=== PATIENT | female | born 1965 | race Caucasian/White ===

== ENCOUNTER 2023-12-30 11:04 | Emergency (ER) | payer BC, SELFPAY ==
[2023-12-30 11:07] VITALS: BP 147/83
--- NOTE | 2023-12-30 12:23 | ED.GENMED ---
History of Present Illness
General
Chief Complaint: Musculo-Skeletal Complaint
Source: patient
Exam Limitations: none
Time Seen by Provider: 12/30/23 11:17
Nursing documentation reviewed up to this point in time: agreed with
Travel History
Have you had any contact with someone who has COVID-19?: No
Do you have any symptoms of coronavirus? Fever > 100 degrees, chills, cough, shortness of breath, sore throat, loss of taste or smell, muscle aches, or headache?: No
History of Present Illness
History of Present Illness:
58-year-old female with Lalita history of hypertension hyperlipidemia, GERD presenting to the emergency department today with concerns of left-sided ankle discomfort and great toe discomfort after slipping on a step and injuring her ankle.
Difficulty walking on the ankle at this point. No specific numbness or weakness. Denies additional injuries head trauma neck pain.
Past History
Past History
ED Past Medical History: Cancer (breast, takes Tamoxofen), GERD (on Omeprazole prn), HTN (takes Lisinopril), Hypercholesterolemia (takes Fenfibronate) and Other (hiatal hernia)
ED Past Surgical History: and Other (lumpectomy)
Social History
Tobacco: Non-smoker
Personal:
Living: with family
Employment: Employed
Review of Systems
Review of Systems
Allergies reviewed?: Yes
All Other Systems: ROS reviewed and negative except as documented in HPI and ROS
Phy Exam
Physical Exam
Physical Exam:
GENERAL: Alert , in no apparent distress
EYE: pupils equal and reactive
NECK: Supple, no significant adenopathy.
ENT: o/p clr, mmm.
CARDIAC: Regular rate and rhythm .
LUNGS: Clear breath sounds bilaterally, no acute respiratory distress, no wheezes/rales/rhonchi
ABDOMEN: Soft, without focal tenderness, no r/g, no cvat
NEUROLOGICAL: Alert and oriented, no focal neuro deficits
SKIN: Warm and dry, skin intact.
MUSCULOSKELETAL: Swelling discomfort to the lateral malleolus of the left ankle additional tenderness to the base of the great toe no tenderness at the forefoot or midfoot no tenderness throughout the remainder of the tib-fib or knee.
PSYCH: Normal and appropriate interaction.
Course
Orders/Labs/Results
Orders:
Orders
12/30/23 11:10
CR Ankle - Left Min 3 Views Urgent
Comment:
Reason For Exam: fall
CR Toe(s) Min 2 Vw Left Urgent
Comment:
Reason For Exam: fall
12/30/23 12:02
Crutches-Treatment ONCE
boot [Ortho Boot Left- Treatment] ONCE
Short or tall?: Tall
Vital Signs
Initial and Last Documented VS:
Initial Vital Signs
Temp Pulse Resp BP
98.1 F 83 16 147/83
12/30/23 11:07 12/30/23 11:07 12/30/23 11:07 12/30/23 11:07
Last Documented Vital Signs
Temp Pulse Resp BP
98.1 F 83 16 147/83
12/30/23 11:07 12/30/23 11:07 12/30/23 11:07 12/30/23 11:07
MDM/Problems Addressed
MDM/Problems Addressed:
58-year-old female presenting to the emergency department today after slipping on a step in her left ankle and toe. Here she does have tenderness to the lateral malleolus and the great toe otherwise no tenderness throughout the ankle foot or stern.
No tenderness to the knee. X-ray showing a distal fibular fracture. No fracture to the great toe. Mortise intact. Patient was given a cam boot and will be nonweightbearing until orthopedic follow-up for further recommendation. Otherwise stable
for discharge. Return precautions given.
*Critical Care Note
Total Time (30-74mins, 75-104mins- exclusive of procedures): Not Applicable
ED Attending Note
-
Portions of this chart may have been created with voice recognition software.� Occasional wrong word or��sound alike� substitutions may have occurred due to the inherent limitations of voice recognition software.
Discharge Plan
Departure
Patient Disposition: Home (Routine Discharge)
Date of Disposition: 12/30/23
Time of Disposition: 12:26
Patient with high blood pressure during this ER visit?: No
Condition: Good
Covid-19: Not Applicable
Discharge Problem:
Fracture of distal end of fibula
Instructions: Ankle Fracture (DC)
Prescriptions:
New
oxycodone-acetaminophen [Percocet] 5-325 mg tablet
1 tab PO Q6H PRN (Reason: Pain) Qty: 7 0RF
Referrals:
Jay Hernandez PA-C [Family Provider] -
Rusty Stack DPM [Active] - Follow up in 1 week
Activity Restrictions/Additional Instructions:
You came to the emergency department today with concerns of ankle discomfort. You were found to have a distal fibula fracture please rest ice compress and over the next few days and follow-up closely with podiatry for further recommendation and
management. Return to the emergency department for any worsening, new or concerning symptoms.
Interventions
Interventions:
*General Assessment Last Done: 12/30/23 11:07
*ED COVID-19 Vaccine History Last Done: 12/30/23 11:07
== END 2023-12-30 13:12 | disposition home or self-care (01) ==
LOC: EMR 11:04
PROVIDERS: EMERGENCY PHYSICIAN Emergency Medicine; FAMILY PHYSICIAN Physician Assistant Medical
DX: S82.832A Other fracture of upper and lower end of left fibula, initial encounter for closed fracture (principal); X58.XXXA Exposure to other specified factors, initial encounter; I10 Essential (primary) hypertension; E78.00 Pure hypercholesterolemia, unspecified; K21.9 Gastro-esophageal reflux disease without esophagitis
CPT/HCPCS: 99283; 73610; 73660

== ENCOUNTER → 2024-01-29 11:00 | Outpatient (REF) | payer BC, SELFPAY | LOC: WDC 11:00 | PROVIDERS: ATTENDING PHYSICIAN Physician Assistant Medical | DX: Z12.31 Encounter for screening mammogram for malignant neoplasm of breast (principal) | CPT/HCPCS: 77063; 77067 ==

== ENCOUNTER → 2024-02-20 10:21 | Outpatient (REF) | payer BC, SELFPAY ==
[2024-02-20 11:54] LABS: ALT (SGPT) 36 U/L (0-35); AST (SGOT) 32 U/L (14-36); Alkaline Phosphatase 76 U/L (38-126); Blood Urea Nitrogen 15 mg/dl (7-17); Calcium 10.1 mg/dl (8.4-10.2); Carbon Dioxide 25 mmol/L (22-30); Chloride 105 mmol/L (98-107); Glucose 104 mg/dl (70-99); Potassium 4.1 mmol/L (3.5-5.1); Sodium 138 mmol/L (135-145); Total Bilirubin 1.2 mg/dl (0.2-1.3); Total Protein 7.8 g/dl (6.3-8.2); eGFR > 60.00
== END ==
LOC: REG 10:21
PROVIDERS: ATTENDING PHYSICIAN Physician Assistant Medical
DX: E83.52 Hypercalcemia (principal); Z85.3 Personal history of malignant neoplasm of breast
CPT/HCPCS: 36415; 80053

== ENCOUNTER 2024-03-25 16:20 | Outpatient (RCR) | payer BC, SELFPAY | END 2024-03-25 23:59 | disposition home or self-care (01) | LOC: RPT 16:20 | PROVIDERS: ATTENDING PHYSICIAN Physician Assistant Medical | DX: S82.822D Torus fracture of lower end of left fibula, subsequent encounter for fracture with routine healing (principal); R26.9 Unspecified abnormalities of gait and mobility; Z73.6 Limitation of activities due to disability | CPT/HCPCS: 97010; 97110; 97112; 97140; 97161 ==

== ENCOUNTER → 2024-03-27 08:42 | Outpatient (REF) | payer BC, SELFPAY ==
[2024-04-03 08:23] LABS: HPV, High Risk Not Detected; HPV, High Risk Source Cervical
== END ==
LOC: CPAP 08:42
PROVIDERS: ATTENDING PHYSICIAN Obstetrics & Gynecology
DX: Z01.419 Encounter for gynecological examination (general) (routine) without abnormal findings (principal); Z11.51 Encounter for screening for human papillomavirus (HPV)
CPT/HCPCS: 87624

== ENCOUNTER 2024-04-22 16:28 | Outpatient (RCR) | payer BC, SELFPAY | END 2024-04-22 23:59 | disposition home or self-care (01) | LOC: RPT 16:28 | PROVIDERS: ATTENDING PHYSICIAN Physician Assistant Medical | DX: S82.822D Torus fracture of lower end of left fibula, subsequent encounter for fracture with routine healing (principal); R26.2 Difficulty in walking, not elsewhere classified; Z73.6 Limitation of activities due to disability | CPT/HCPCS: 97110; 97112 ==

== ENCOUNTER 2024-05-06 16:13 | Outpatient (RCR) | payer BC, SELFPAY | END 2024-05-08 13:30 | disposition home or self-care (01) | LOC: RPT 16:13 | PROVIDERS: ATTENDING PHYSICIAN Physician Assistant Medical | DX: S82.822D Torus fracture of lower end of left fibula, subsequent encounter for fracture with routine healing (principal); Z73.6 Limitation of activities due to disability; R26.2 Difficulty in walking, not elsewhere classified; M62.81 Muscle weakness (generalized) | CPT/HCPCS: 97110; 97112 ==

== ENCOUNTER → 2024-06-20 17:46 | Outpatient (REF) | payer BC, SELFPAY | LOC: MRI 3T 17:46 | PROVIDERS: ATTENDING PHYSICIAN Orthopaedic Surgery; FAMILY PHYSICIAN Physician Assistant Medical | DX: S83.232A Complex tear of medial meniscus, current injury, left knee, initial encounter (principal) | CPT/HCPCS: 73721 ==

== ENCOUNTER → 2024-07-07 07:57 | Outpatient (REF) | payer BC, SELFPAY ==
--- NOTE | 2024-07-07 15:42 | OID.BR.INTR ---
[facility] Breast Navigator - Initial
- -
Date of Contact: 07/07/24
Met with patient. Patient given written information on navigator services available at [facility]. Will follow up as needed per protocol.
== END ==
LOC: WDC 07:57
PROVIDERS: ATTENDING PHYSICIAN Obstetrics & Gynecology; FAMILY PHYSICIAN Physician Assistant Medical
DX: R92.2 Inconclusive mammogram (principal); Z85.3 Personal history of malignant neoplasm of breast; N63.11 Unspecified lump in the right breast, upper outer quadrant
CPT/HCPCS: 88305; 19083; 76641; 77065; 88341; 88360; A4648

== ENCOUNTER → 2024-07-14 09:57 | Outpatient (REF) | payer BC, SELFPAY ==
[2024-07-14 10:39] LABS: % Basophils 1.5 % (0-2); % Eosinophils 0.8 % (0-6); % Immature Granulocytes 0.1 % (0-0.5); % Lymphocytes 36.4 % (20.5-51.1); % Monocytes 5.5 % (1.7-9.3); % Neutrophils 55.7 % (42.2-75.2); Absolute Basophils 0.1 10^3/uL (0-0.2); Absolute Eosinophils 0.1 10^3/uL (0-0.7); Absolute Lymphocytes 2.7 10^3/uL (1.2-3.4); Absolute Monocytes 0.4 10^3/uL (0.1-0.6); Absolute Neutrophils 4.2 10^3/uL (1.4-6.5); Hematocrit 41.4 % (37.0-47.0); Hemoglobin 14.6 g/dL (12.0-16.0); Mean Corp Hgb Conc. 35.3 g/dL (33.0-37.0); Mean Corpuscular Hgb 30.7 pg (27.0-31.0); Mean Corpuscular Volume 87.2 fL (81.0-99.0); Nucleated Red Blood Cells % 0 %; Platelet Count 341 10^3/uL (130-400); Red Blood Cell Count 4.75 10^6/uL (4.20-5.40); Red Cell Dist. Width 12.2 % (11.5-14.5); White Blood Cell Count 7.5 10^3/uL (4.8-10.8)
[2024-07-14 11:25] LABS: ALT (SGPT) 34 U/L (0-35); AST (SGOT) 30 U/L (14-36); Alkaline Phosphatase 65 U/L (38-126); Blood Urea Nitrogen 19 mg/dl (7-17); Calcium 10.4 mg/dl (8.4-10.2); Carbon Dioxide 24 mmol/L (22-30); Chloride 104 mmol/L (98-107); Glucose 110 mg/dl (70-99); HDL Cholesterol 58 mg/dl; LDL Cholesterol, Calculated 99 mg/dl; Potassium 4.8 mmol/L (3.5-5.1); Sodium 139 mmol/L (135-145); Total Bilirubin 1.4 mg/dl (0.2-1.3); Total Cholesterol 177 mg/dl (50-199); Triglyceride 100 mg/dl (10-149); Very Low Density Lipoprotein 20 mg/dl (0-30); eGFR > 60.00
[2024-07-14 11:39] LABS: TSH 0.59 uIU/ml (0.47-4.68)
[2024-07-14 11:45] LABS: Albumin 5.1 g/dl (3.5-5.0); Total Protein 7.7 g/dl (6.3-8.2)
[2024-07-14 16:06] LABS: Glycohemoglobin (HgbA1c) 5.7 % (4.0-5.6)
== END ==
LOC: REG 09:57
PROVIDERS: ATTENDING PHYSICIAN Physician Assistant Medical
DX: E78.2 Mixed hyperlipidemia (principal); Z85.3 Personal history of malignant neoplasm of breast; K21.9 Gastro-esophageal reflux disease without esophagitis; R79.89 Other specified abnormal findings of blood chemistry; E11.69 Type 2 diabetes mellitus with other specified complication; E83.52 Hypercalcemia
CPT/HCPCS: 36415; 80053; 80061; 83036; 84443; 85025

== ENCOUNTER → 2024-08-07 12:20 | Outpatient (REF) | payer BC, SELFPAY | LOC: RAD 12:20 | PROVIDERS: ATTENDING PHYSICIAN Surgery Plastic and Reconstructive Surgery; FAMILY PHYSICIAN Physician Assistant Medical; REFERRING PHYSICIAN Surgery | DX: C50.411 Malignant neoplasm of upper-outer quadrant of right female breast (principal) | CPT/HCPCS: 74174; Q9967 ==

== ENCOUNTER 2024-08-27 06:01 | Inpatient (IN) | payer BC, SELFPAY ==
[2024-08-05 10:38] VITALS: BMI 30.5
[2024-08-05 10:38] LABS: % Basophils 1.7 % (0-2); % Eosinophils 2.2 % (0-6); % Immature Granulocytes 0.2 % (0-0.5); % Lymphocytes 37.3 % (20.5-51.1); % Neutrophils 53.6 % (42.2-75.2); Absolute Basophils 0.1 10^3/uL (0-0.2); Absolute Eosinophils 0.1 10^3/uL (0-0.7); Absolute Lymphocytes 2.4 10^3/uL (1.2-3.4); Absolute Monocytes 0.3 10^3/uL (0.1-0.6); Absolute Neutrophils 3.5 10^3/uL (1.4-6.5); Hematocrit 42.4 % (37.0-47.0); Hemoglobin 14.6 g/dL (12.0-16.0); Mean Corp Hgb Conc. 34.4 g/dL (33.0-37.0); Mean Corpuscular Hgb 30.4 pg (27.0-31.0); Mean Corpuscular Volume 88.1 fL (81.0-99.0); Mean Platelet Volume 10.2 fL (7.4-10.4); Nucleated Red Blood Cells % 0 %; Platelet Count 324 10^3/uL (130-400); Red Blood Cell Count 4.81 10^6/uL (4.20-5.40); Red Cell Dist. Width 12.4 % (11.5-14.5); White Blood Cell Count 6.5 10^3/uL (4.8-10.8)
[2024-08-05 10:47] LABS: ALT (SGPT) 37 U/L (0-35); AST (SGOT) 31 U/L (14-36); Alkaline Phosphatase 74 U/L (38-126); Blood Urea Nitrogen 20 mg/dl (7-17); Calcium 10.1 mg/dl (8.4-10.2); Carbon Dioxide 25 mmol/L (22-30); Chloride 103 mmol/L (98-107); Estimated Creatinine Clearance 100 ml/min; Glucose 120 mg/dl (70-99); Potassium 4.6 mmol/L (3.5-5.1); Sodium 144 mmol/L (135-145); Total Bilirubin 1.2 mg/dl (0.2-1.3); Total Protein 7.6 g/dl (6.3-8.2); eGFR > 60.00
[2024-08-27] VITALS (27 sets, daily range): BP systolic 101–137; BP diastolic 61–84; BMI 30.5
[2024-08-27] MEDS: TYLENOL 1000 MG PO ×2 (06:46→19:26)
[2024-08-27] MEDS: LOVENOX 40 MG SC (06:46)
[2024-08-27] MEDS: NORMOSOL-R/PLASMALYTE-A 1000 IV (06:47)
[2024-08-27] MEDS: EMEND 40 MG PO (07:10)
--- NOTE | 2024-08-27 07:49 | W.SUR.PREOP ---
Pre-Operative Surgical Note
-
I have examined this patient prior to the performance of the scheduled procedure.
The patient's condition is unchanged from the time of the current History and
Physical and the patient is able to undergo the scheduled procedure.
--- NOTE | 2024-08-27 16:59 | OR.RPT ---
Operative Report
Operative Report
Surgeon: Blair Brown MD
Building Maintenance Custodian: Mustapha Michael MD
Second Parts Counter Salesperson: Chapis Salazar MD
Pre-op diagnosis:
1.� Personal history of recurrent right breast cancer
2.� Prior right breast radiation
3. Breast asymmetry
Postop diagnosis: Same
Procedure:
1.� Bilateral breast reconstruction with MEME flaps
2.� Bilateral internal mammary lymph node biopsy
3. Local tissue rearrangement of the left breast for adjustment of skin envelope 45 cm2
Anesthesia: General
EBL: 150 cc
Specimens:
1.� Right internal mammary lymph node
2.� Left mastectomy skin and soft tissue
3.� Left internal mammary lymph node
Drains: 4 - 15 [place] Artur drains
Complications: none
Indications:
59-year-old female with a past medical history significant for right breast cancer with prior radiation.� She unfortunately was diagnosed with recurrent right breast cancer. She was interested in moving forward with autologous reconstruction due to
the prior history of radiation. Given the anticipated bilateral MEME flap breast reconstruction, I was asked to be involved in her care given the complexity of the case and the need for a second surgeon to do this as safely and efficiently as
possible.
Regarding bilateral free flap breast reconstruction,� she understood the nature of the surgery and all of the risk benefits alternatives were discussed at length.� Specific risks included flap failure or thrombosis, hematoma, seroma, poor wound
healing and compromise to the abdominal wall.� All questions were answered and consents were signed.
Operative findings:
The patient was identified in the preoperative area and consents were confirmed. The bilateral breasts were marked out as was the elliptical infraumbilical donor site. All questions were answered. She was brought to the operating room and placed
supine on the operative table.� General anesthesia was induced with an endotracheal tube. The arms were out bilaterally and a Sullivan catheter was placed.� Preoperative Lovenox and antibiotics were administered, and SCDs were placed.� The patient's
bilateral breasts and abdomen were prepped and draped in normal standard fashion using chlorhexidine prep.� A timeout for patient safety was performed.
As the breast surgeon, Dr. Salazar, was performing the mastectomies, Dr. Michael and I were in the abdomen dissecting the abdominal flaps. I dissected the right abdominal flap for left breast reconstruction and Dr. Michael worked on the left abdomen
for right breast reconstruction. Dr. Michael assisted me with my portions of the case, and I assisted him with his portions of the case. Please see Dr. Salazar and Dr. Michael's separately dictated operative notes.
In the abdomen, bilateral MEME flaps were dissected out. This began with incising the proposed markings superiorly and dissection with a slight bevel upwards to the level of the fascia. Undermining of the supraumbilical flap continue in the midline
above the umbilicus. Laterally, this extend near but not all the way to the costal margin. The patient was then flexed at the waist and the lower incision was confirmed to be tenable without undue tension. The patient was returned supine and the
lower marking was incised with a 10 blade. The flaps were then raised laterally to medially be sure to maintain the perforating vessels above the level of the fascia.� On the right side a 4 prototype fabricator MEME flap was dissected out.� Similarly on the
left side a 3 prototype fabricator MEME flap had been dissected out.�This involved a tedious intramuscular dissection to minimize the amount of muscle harvested with the flap. The pedicles were dissected down to level of the iliac vessels.
When Dr. Salazar was done with the mastectomies, I moved up to the left chest for the mammary dissection. The muscle was split over the third intercostal rib and the cartilaginous portion of the rib was excised.� The underlying internal mammary
vessels were then meticulously and carefully dissected.�An internal mammary lymph node was encountered and this was excised and sent off for pathologic evaluation. Once the vessels were fully dissected circumferentially these were allowed to dilate
up while attention was turned to the contralateral breast.� A pectoralis block was then performed with marcaine and a 15 [place] Artur drain was placed through a stab incision the lateral IMF.� This was secured using a 2-0 Prolene suture.
The identical procedure was then performed on the patient's right side.� Again this involved rib resection, and internal mammary vessel dissection.� These vessels were similarly prepared and allowed to dilate up with papaverine soaked neuro
patties.�The vessels were radiated on this side and required a more careful dissection. A pectoralis block was similarly performed on this side and a 15 [place] Artur drain was also placed through a stab incision in the lateral IMF on the side. An
internal mammary lymph node was also noted on the right side. This was dissected out and sent off for pathologic evaluation.
The left hemiabdominal flap was then transferred up to the right chest first due to the history of radiation.� The microvascular anastomosis was then performed.� This was done using a 3.5mm locker room manager for the venous anastomosis.� The arterial
anastomosis was performed with a handsewn technique using 8-0 nylon suture.� Upon removal of the microvascular clamps there was excellent perfusion of the flap.� The flap was then temporarily inset with melba and attention was turned to the
contralateral side.
The right hemiabdominal flap was then transferred up to the left chest.� The microvascular anastomosis was similarly performed.� On this side a 3.0mm locker room manager was again utilized for the venous anastomosis.� The arterial anastomosis was performed in
the same fashion as the contralateral side.� Again there was excellent perfusion noted upon removal of the vascular clamps.
While one surgeon was performing the microvascular anastomosis the other surgeon was performing the abdominal wall reconstruction.� This involved reapproximation of the muscles that was divided.� A small piece of Phasix mesh was inset as a underlay
with primary fascial closure.� The fascia was closed with a PDS stratafix sutures.�A midline abdominal plication was also peformed due to the patient's rectus diastasis.
A TAP block was performed bilaterally for postoperative analgesia.� Two 15 [place] Artur drains were placed in the abdomen.� These were similarly secured using 2-0 Prolene sutures.� The abdominal wall was then closed in a layered fashion.� 2-0 Vicryl
suture was utilized in the Jeramie's fascia.� The Insorb dermal stapler was then utilized for reapproximation of the deep dermis.� The superficial skin was then closed using 4-0 Monocryl suture.� The umbilicus was transposed.� This was inset using a
combination of 3-0 Monocryl in the deep dermis and 5-0 prolene suture superficially.
The MEME flaps were then inset. The breast skin was then revised with a local tissue rearrangement on the left.�A 9 x 5 cm local tissue rearrangement was performed on the left to revise the left breast skin and tighten the skin envelope for a total
of 45 cm2. The breast skin was then excised and sent off for pathologic evaluation.� The skin was then closed in a layered fashion using 3-0 and 4-0 Monocryl suture.� The MEME flaps were de-epithelialized in all areas that would not be exposed
prior to closure.
Doppler signals were identified on both skin islands and there was good punctate bleeding at time of deepithelialization. Signals were marked with 5-0 prolenes.
The wounds were then all dressed and the patient was extubated uneventfully.� All counts were correct at the the completion of the case.� The patient tolerated the procedure very well.� She had an excellent cosmetic outcome.� The patient was then
transferred to the ICU for postoperative� monitoring.
I was the primary surgeon for the left MEME flap breast reconstruction and Dr. Genna Michael was the primary surgeon for the right side. I assisted him in all aspects of his surgery and he assisted me throughout my procedure.
Dr. Chapis Salazar was our second programs assistant for this case.� Her assistance was critical and medically necessary to allow us to perform this in a safe and timely manner for this patient.� She assisted with retraction, execution, and closure of this
case.
--- NOTE | 2024-08-27 17:15 | W.IMMPOSTOP ---
Surgical Immed Post Op Note
-
Primary Surgeon: DENISE Michael MD
Assisting Surgeon: Blair Brown MD
Pre-op Diagnosis: right breast cancer
Post-op Diagnosis: same
Procedure Performed: bilateral immediate D IEP flap breast reconstruction
Anesthesia Type: General
Specimen / Cultures: Per Dr. Salazar
Estimated Blood Loss: 150 cc
Complications: none
Operative Findings: as expected, no issues with micro
--- NOTE | 2024-08-27 17:16 | OR.RPT ---
Operative Report
Operative Report
Date of surgery: 08/27/2024
Surgeon: Mustapha Michael MD
Brick Pointer: Blair Brown MD
Second Contract Post Office Clerk: Chapis Salazar MD
Pre-op diagnosis:
1.� Personal history of recurrent right breast cancer
2.� Prior right breast radiation
3. Breast asymmetry
Postop diagnosis: Same
Procedure:
1.� Bilateral breast reconstruction with MEME flaps
2.� Bilateral internal mammary lymph node biopsy
3. Local tissue rearrangement of the left breast for adjustment of skin envelope 45 cm2
Anesthesia: General
EBL: 150 cc
Specimens:
1.� Right internal mammary lymph node
2.� Left mastectomy skin and soft tissue
3.� Left internal mammary lymph node
Drains: 4 - 15 Swazi Artur drains
Complications: none
Indications:
59-year-old female with a past medical history significant for right breast cancer with prior radiation.� She unfortunately was diagnosed with recurrent right breast cancer. She was referred to me by Dr. Salazar for consideration of breast
reconstruction options. After a conversation about both implant and autologous reconstruction options and the associated risks, she was interested in moving forward with autologous reconstruction. This is medically advisable given the prior history
of radiation. As it is a bilateral procedure with chest and abdomen as distinct operative sites, I asked Dr. Blair Brown to be involved in her care given the complexity of the case and the need for a second surgeon to do this as safely and
efficiently as possible.
Regarding bilateral free flap breast reconstruction,� she understood the nature of the surgery and all of the risk benefits alternatives were discussed at length.� Specific risks included flap failure or thrombosis, hematoma, seroma, poor wound
healing and compromise to the abdominal wall.� All questions were answered and consents were signed.
Operative findings:
The patient was identified in the preoperative area and consents were confirmed. The bilateral breasts were marked out as was the elliptical infraumbilical donor site. All questions were answered. She was brought to the operating room and placed
supine on the operative table.� General anesthesia was induced with an endotracheal tube. The arms were out bilaterally and a Sullivan catheter was placed.� Preoperative Lovenox and antibiotics were administered, and SCDs were placed.� The patient's
bilateral breasts and abdomen were prepped and draped in normal standard fashion using chlorhexidine prep.� A timeout for patient safety was performed.
As the breast surgeon, Dr. Salazar, was performing the mastectomies, Dr. Brown and I were in the abdomen dissecting the abdominal flaps. I dissected the left abdominal flap for riht breast reconstruction and Dr. Brown worked on the right abdomen for
left breast reconstruction. Dr. Brown assisted me with my portions of the case, and I assisted him with his portions of the case. Please see Dr. Salazar and Dr. Brown's separately dictated operative notes.
In the abdomen, bilateral MEME flaps were dissected out. This began with incising the proposed markings superiorly and dissection with a slight bevel upwards to the level of the fascia. Undermining of the supraumbilical flap continue in the midline
above the umbilicus. Laterally, this extend near but not all the way to the costal margin. The patient was then flexed at the waist and the lower incision was confirmed to be tenable without undue tension. The patient was returned supine and the
lower marking was incised with a 10 blade. The flaps were then raised laterally to medially be sure to maintain the perforating vessels above the level of the fascia.� On the right side a 4 director of compliance MEME flap was dissected out.� Similarly on the
left side a 3 director of compliance MEME flap had been dissected out.�This involved a tedious intramuscular dissection to minimize the amount of muscle harvested with the flap. The pedicles were dissected down to level of the iliac vessels.
When Dr. Salazar was done with the mastectomies, Dr. Brown moved up to the left chest for the mammary dissection. The muscle was split over the third intercostal rib and the cartilaginous portion of the rib was excised.� The underlying internal
mammary vessels were then meticulously and carefully dissected.�An internal mammary lymph node was encountered and this was excised and sent off for pathologic evaluation. Once the vessels were fully dissected circumferentially these were allowed to
dilate up while attention was turned to the contralateral breast.� A pectoralis block was then performed with marcaine and a 15 Swazi Artur drain was placed through a stab incision the lateral IMF.� This was secured using a 2-0 Prolene suture.
The identical procedure was then performed on the patient's right side.� Again this involved rib resection, and internal mammary vessel dissection.� These vessels were similarly prepared and allowed to dilate up with papaverine soaked neuro
patties.�The vessels were radiated on this side and required a more careful dissection. A pectoralis block was similarly performed on this side and a 15 Swazi Artur drain was also placed through a stab incision in the lateral IMF on the side. An
internal mammary lymph node was also noted on the right side. This was dissected out and sent off for pathologic evaluation.
The left hemiabdominal flap was then transferred up to the right chest first due to the history of radiation.� The microvascular anastomosis was then performed.� This was done using a 3.5mm sys dir for the venous anastomosis.� The arterial
anastomosis was performed with a handsewn technique using 8-0 nylon suture.� Upon removal of the microvascular clamps there was excellent perfusion of the flap.� The flap was then temporarily inset with melba and attention was turned to the
contralateral side.
The right hemiabdominal flap was then transferred up to the left chest.� The microvascular anastomosis was similarly performed.� On this side a 3.0mm sys dir was again utilized for the venous anastomosis.� The arterial anastomosis was performed in
the same fashion as the contralateral side.� Again there was excellent perfusion noted upon removal of the vascular clamps.
While one surgeon was performing the microvascular anastomosis the other surgeon was performing the abdominal wall reconstruction.� This involved reapproximation of the muscles that was divided.� A small piece of Phasix mesh was inset as a underlay
with primary fascial closure.� The fascia was closed with a PDS stratafix sutures.�A midline abdominal plication was also performed due to the patient's rectus diastasis.
A TAP block was performed bilaterally for postoperative analgesia.� Two 15 Swazi Artur drains were placed in the abdomen.� These were similarly secured using 2-0 Prolene sutures.� The abdominal wall was then closed in a layered fashion.� 2-0 Vicryl
suture was utilized in the Jeramie's fascia.� The Insorb dermal stapler was then utilized for reapproximation of the deep dermis.� The superficial skin was then closed using 4-0 Monocryl suture.� The umbilicus was transposed.� This was inset using a
combination of 3-0 Monocryl in the deep dermis and 5-0 prolene suture superficially.
The MEME flaps were then inset. The breast skin was then revised with a local tissue rearrangement on the left.�A 9 x 5 cm local tissue rearrangement was performed on the left to revise the left breast skin and tighten the skin envelope for a total
of 45 cm2. The breast skin was then excised and sent off for pathologic evaluation.� The skin was then closed in a layered fashion using 3-0 and 4-0 Monocryl suture.� The MEME flaps were de-epithelialized in all areas that would not be exposed
prior to closure.
Doppler signals were identified on both skin islands and there was good punctate bleeding at time of deepithelialization. Signals were marked with 5-0 prolenes.
The wounds were then all dressed and the patient was extubated uneventfully.� All counts were correct at the the completion of the case.� The patient tolerated the procedure very well.� She had an excellent cosmetic outcome.� The patient was then
transferred to the ICU for postoperative� monitoring.
I was the primary surgeon for the right MEME flap breast reconstruction and Dr. Blair Brown was the primary surgeon for the left side. I assisted him in all aspects of his surgery and he assisted me throughout my procedure.
Dr. Chapis Salazar was our second clinical laboratory assistant for this case.� Her assistance was critical and medically necessary to allow us to perform this in a safe and timely manner for this patient.� She assisted with retraction, execution, and closure of this
case.
[2024-08-27] MEDS: ZOFRAN 4 MG IV (17:51)
[2024-08-27] MEDS: LR 1000 IV (17:55)
--- NOTE | 2024-08-27 18:13 | PTCARENOTE ---
Received patient to room 3371. Patient groggy, arousable. AAOx3. on 6L simple mask. 99%. Applied monitor, patient sinus rhythm/sinus tach low 100s. Paddle doppler checks completed at handoff with physician present. will check as ordered.
Patient is nauseous, zofran administered, Is ordered clear liquid diet. temp sensing mckeon in place, audra angeles applied as charted in worklist. Skin to be charted in worklist. LR hung running into 20g in left hand. reviewing orders. SCDs on.
[2024-08-27] MEDS: VALIUM 5 MG PO (19:26)
[2024-08-27] MEDS: ULTRAM 100 MG PO (23:03)
[2024-08-28] VITALS (57 sets, daily range): BP systolic 101–137; BP diastolic 64–85; BMI 31.6
[2024-08-28] MEDS: NEURONTIN 100 MG PO ×3 (01:00→15:58)
[2024-08-28] MEDS: ANCEF 10 IV ×3 (01:15→15:59)
[2024-08-28] MEDS: LR 1000 IV (01:15)
[2024-08-28] MEDS: ZOFRAN 4 MG IV (01:34)
--- NOTE | 2024-08-28 01:49 | PTCARENOTE ---
nikki texted dr briggs, updated him with pictures of the incision sites. mild bruising was noted on both breasts. dr briggs messased back that everything is normal.
[2024-08-28 04:58] LABS: Hematocrit 28.8 % (37.0-47.0); Hemoglobin 10.1 g/dL (12.0-16.0)
[2024-08-28 05:22] LABS: Blood Urea Nitrogen 13 mg/dl (7-17); Calcium 8.4 mg/dl (8.4-10.2); Carbon Dioxide 25 mmol/L (22-30); Chloride 106 mmol/L (98-107); Estimated Creatinine Clearance 100 ml/min; Glucose 155 mg/dl (70-99); Potassium 3.8 mmol/L (3.5-5.1); Sodium 141 mmol/L (135-145); eGFR > 60.00
--- NOTE | 2024-08-28 07:24 | CON.INTV ---
Consultation
Consultation Request
Date/Time Consultation Requested: 08/26/24
Date/Time Consultation Performed: 08/27/24
Performing Provider: Juliana
Reason for Consultation: ICU
Medical History
-
History of Present Illness:
Patient is a 59-year-old female with recurrent right breast mucinous carcinoma who presents for bilateral mastectomies and immediate reconstruction. She has prior history of breast cancer diagnosed in 2016 and underwent lumpectomy, chemotherapy
with radiation. Underwent bilateral mastectomies with MEME FLAP with Drs. Salazar and Alec. Postoperatively transferred to ICU for further management.
.
Past Medical History
Past Medical History: Other (see list below)
Social History
Tobacco: Non-smoker
Alcohol: None
Drug: None
Family History
Family History: Reviewed & Not Pertinent
Allergies / Home Medications
Allergies
Allergy/AdvReac Type Severity Reaction Status Date / Time
codeine Allergy Confusion Verified 08/27/24 06:19
Seasonal Allergy Sneezing, Uncoded 08/27/24 06:19
itchy eye,
ears,
throat
Home Medications
�Medication �Instructions �Recorded �Confirmed �Last Taken �Type
B-complex with vitamin C 1 tab PO DAILY 08/20/24 08/27/24 08/21/24 History
ascorbic acid (vitamin C) 1,000 mg 1,000 PO BID 08/20/24 08/21/24 History
tablet (Vitamin C)
atorvastatin 20 mg tablet 20 mg PO DAILY 08/20/24 08/27/24 08/26/24 08:00 History
cholecalciferol (vitamin D3) 50 50 mcg PO DAILY 08/20/24 08/27/24 08/21/24 History
mcg (2,000 unit) tablet (Vitamin
D3)
fenofibrate 54 mg tablet 145 mg PO DAILY 08/20/24 08/27/24 08/26/24 21:00 History
lisinopril 20 mg tablet 20 mg PO DAILY 09/08/27/24 08/26/24 08:00 History
multivitamin 1 tab PO DAILY 08/20/24 08/27/24 08/21/24 History
omeprazole 20 mg capsule,delayed 20 mg PO DAILY PRN indigestion 08/20/24 08/27/24 08/26/24 12:00 History
release
Review of Systems
-
History Source: Patient
All other systems: Negative unless noted
Vitals / Labs / Diagnostic Testing
Vital Signs
Temp Pulse Resp BP Pulse Ox
98.9 F 96 18 111/71 94
08/28/24 06:00 08/28/24 06:30 08/28/24 06:30 08/28/24 06:30 08/28/24 06:43
Lab Data
08/28/24 04:33
08/28/24 04:33
Diagnostic Testing:
Physical Exam
-
HEENT: Normocephalic, Anicteric and Moist Mucous Membranes
Cardiovascular: S1/S2, Regular Rhythm and Other (incision noted, drains in place)
Respiratory: Clear and Non-Labored Respirations
GI: Soft, Non Distended and Non Tender
Neurology: Awake, Alert, Oriented and No Motor Deficits
Skin: Warm, Dry and Good Color
General: Comfortable, Pain and Other (NAD)
Assessment
-
Patient is a 59-year-old female with recurrent right breast mucinous carcinoma who presents for bilateral mastectomies and immediate reconstruction. She has prior history of breast cancer diagnosed in 2016 and underwent lumpectomy, chemotherapy
with radiation. Underwent bilateral mastectomies with MEME FLAP with Drs. Salazar and Alec. Postoperatively transferred to ICU for further management.
Recurrent right breast cancer status post B/l mastectomies with MEME FLAP 08/26/24
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
Abnormal pap 1993: cervical dysplasia s/p LEEP
HLD
History of R invasive ductal carcinoma breast 2016 s/p lumpectomy/chemo/radiation
Seasonal allergies
Tubal ligation 1998
Cervical spine surgery
D and C 2016
Plan
S/p BL mastectomies (with Dr Salazar) with MEME FLAP by plastic surgery 08/26/24
Observe overnight following procedure
Follow CBC, neurovascular checks
Follow q1 blood flow monitoring to flap
Notify surgical team if compromised
Avoid pressors
Bolus IVFs for hypotension
Pain control via CAUSTIC MIXER
Encouraged patient use prior to movement/PT
No prior h/o lung disease, nonsmoker
CXR without acute findings
Encourage IS, OOB today
Restart diet per protocol/advance as tolerated
GI ppx if indicated/history of GERD
DVT ppx held, SCDs
Creat at baseline, follow UO
No signs/symptoms suspicious for infectious etiology at this time.
Placed on perioperative abx per surgical team
Encourage OOB, early mobility
PT/OT
Incentive spirometer encouraged to prevent postoperative atelectasis
DVT ppx as indicated postop
SCDs
Monitor 48 hours, frequent vascular checks
If doing well, can transfer to floors with approval by primary team.
We will follow
Diagnostic Data
Chest X-Ray: 08/27/24- Low lung volumes. Minor bibasilar opacity likely representing subsegmental atelectasis.
CT Scan:
Echo: 2017- Normal left ventricular size. Normal left ventricular systolic function. Left ventricular ejection fraction is 65-70%. Mild left ventricular hypertrophy with prominent basal septum. Normal regional wall motion. Stage I diastolic
dysfunction suggestive of abnormal relaxation. Normal right ventricular size. Normal right ventricular systolic function. No significant valvular disease. No prior study available for comparison.
PFT's:
Reports and relevant images were personally reviewed.
-----
Critical care time 50 mins -- this includes review of history, physical exam, medications, hemodynamic/ventilator parameters, laboratory data, imaging and discussion with house staff, pharmacy, respiratory therapy, guest service aide, and nursing.
--- NOTE | 2024-08-28 07:44 | PTCARENOTE ---
Received patient from hourly shift. patient is AAOx4. denies any numbness or tingling. she is sinus rhythm on monitor. lungs clear on room air. Patient has no change in neurovascular paddle checks as documented in worklist. Will advance diet to
regular. Patient is due to void, mckeon discontinued at 0600. LR continues to run into left hand INT. Orders reviewed.
[2024-08-28] MEDS: COLACE 100 MG PO ×3 (08:04→21:02)
[2024-08-28] MEDS: LIPITOR 20 MG PO (08:04)
[2024-08-28] MEDS: TYLENOL 1000 MG PO ×4 (08:04→21:02)
[2024-08-28] MEDS: VALIUM 5 MG PO ×3 (08:04→21:02)
[2024-08-28] MEDS: SENOKOT 8.6 MG PO ×2 (08:04→20:19)
--- NOTE | 2024-08-28 09:15 | W.PN.PLAS ---
Today's Communication
-
POD 1 flap protocol
DOing very well
Progress Note
Subjective Data
Doing well
Pain well controlled
Denies SOB
Subjective: Sullivan Removed
Objective Data
Vital Signs
Temp Pulse Resp BP Pulse Ox
99.0 F 97 20 120/72 92
08/28/24 08:13 08/28/24 08:30 08/28/24 08:30 08/28/24 08:30 08/28/24 08:30
Intake and Output
08/27/24 08/28/24 08/29/24
06:59 06:59 06:59
Intake Total 1500 / 1625 250 / 250
Output Total 2380 / 2380 110 / 110
Balance -880 / -755 140 / 140
Intake:
IV fluids (Total) 1500 / 1625 250 / 250
Lr 1,000 ml @ 125 mls/hr IV . 1500 / 1625 250 / 250
Q8H DEEPA Rx#:[id number]
Output:
Drain Output (Total) 30 / 30 110 / 110
A 0 / 0 40 / 40
B 15 / 15 30 / 30
C 5 / 5 0 / 0
D 10 / 10 40 / 40
Urine, Sullivan 2350 / 2350
PEX:
Well perfused breast flaps, doppler signals intact
No e/o venous congestion
Drains serosang with appropriate output
some mastectomy skin ecchymoses as expected
Abd dressings intact
Lab Results
08/28/24 04:33
08/28/24 04:33
Assessment / Plan
POD1 for bilateral mstx and immediate MEME flap recon
Free Flap protocol
q1h flap checks
OOB to chair
Sullivan out
SCDs/Lovenox
PO pain
Reg diet
PT/OT tomorrow
--- NOTE | 2024-08-28 09:44 | W.PN.ANS.POP ---
Anesthesia Post Operative
- Anesthesia Post Op Note
Vital Signs Stable-See Nursing Note: Yes
Airway Patent: Yes
Adequate Pain Control: Yes
Change in Mental Status: No
Current Postoperative Nausea & Vomiting: No
Anesthesia Complications: No
General Anesthetic Recall: No
Unplanned Admission: No
Post Op Hydration Adequate: Yes
- -
patient eating and drinking fluids. Resting comfortably in bed. No complaints or concerns at this time
--- NOTE | 2024-08-28 10:50 | PTCARENOTE ---
Patient OOB to chair, maintained chair position and slight bend in abdomen. Min assist/standby assist. voided in BSC as well.
--- NOTE | 2024-08-28 11:27 | VNURNOTE ---
Home Health Liaison met with patient at bedside to discuss [facility] nurse/therapy, visits, schedule and homebound status. Patient is agreeable and understands that visits at home will be 2-3 x per week to assess surg wounds, drains, and teach medical
management. [facility] brochure provided with contact information. Patient is aware that [facility] will contact them for start of care in 1-2 days after discharge from .
[facility] referral completed in Care Port.
--- NOTE | 2024-08-28 12:17 | CM ---
CM following re: discharge planning.
Reviewed pt's chart, met with pt.
Pt is a 59 year old female, admitted with primary dx of POD1 for bilateral mstx and immediate MEME flap recon.
Pt reports she lives with in a 2SH, 2 steps to enter, has 3 supportive children. 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
CM consulted to arrange VN services with a request for RN visit next day of discharge. CM discussed it with the pt, options provided and pt preferred VN. A referral to [facility] made. Pt stated she is aware she possibly will be discharged as early as
Sunday. Pt stated her with transport home at discharge.
Please fax discharge instructions to [facility] at [phone].
D/C plan: home with [facility] with a requested RN visit next day of discharge.
CM will follow with discharge plan updates as hospitalization progresses
[2024-08-28] MEDS: ULTRAM 100 MG PO ×2 (14:41→20:19)
--- NOTE | 2024-08-28 17:30 | PTCARENOTE ---
Cash texted Dr. Michael as patient's left breast is becoming more ecchymotic. Breast tissue still soft and doppler signal still present. Physician aware, no new orders.
[2024-08-28] MEDS: TYLENOL PO (18:06)
[2024-08-28] MEDS: LOVENOX 40 MG SC (18:38)
[2024-08-29] VITALS (38 sets, daily range): BP systolic 101–133; BP diastolic 64–88; PULSE 102; O2SAT 95; BMI 31.7
--- NOTE | 2024-08-29 | PTCARENOTE ---
Pt received at 19:00, initial assessment as documented. Handoff breast paddle checks completed. Q4 ANDRADE drain output---see flowsheet. Safe environment maintained, call smith within reach, pt remains in beach chair position when in bed or chair.
[2024-08-29] MEDS: NEURONTIN 100 MG PO ×3 (00:03→16:35)
[2024-08-29] MEDS: PROTONIX 40 MG PO (01:11)
[2024-08-29 04:31] LABS: Hematocrit 27.9 % (37.0-47.0); Hemoglobin 9.6 g/dL (12.0-16.0); Mean Corp Hgb Conc. 34.4 g/dL (33.0-37.0); Mean Platelet Volume 9.7 fL (7.4-10.4); Platelet Count 222 10^3/uL (130-400); Red Cell Dist. Width 12.8 % (11.5-14.5)
[2024-08-29 04:51] LABS: Blood Urea Nitrogen 18 mg/dl (7-17); Calcium 8.8 mg/dl (8.4-10.2); Carbon Dioxide 28 mmol/L (22-30); Chloride 106 mmol/L (98-107); Estimated Creatinine Clearance 102 ml/min; Glucose 125 mg/dl (70-99); Potassium 3.9 mmol/L (3.5-5.1); Sodium 141 mmol/L (135-145); eGFR > 60.00
--- NOTE | 2024-08-29 05:29 | PTCARENOTE ---
Paddle checks unchanged. Signal present bilaterally. L breast ecchymotic, unchanged from handoff report. Safe environment maintained, call smith within reach. Discussed ANDRADE drainage and emptying.
--- NOTE | 2024-08-29 07:19 | W.PN.INTV ---
Today's Communication / Plan
Recommendations
Doing well today, stable on RA
Pain control
PT/OT, IS
Further postop care per surgery
Discharge planning per team in AM
Assessment
-
Patient is a 59-year-old female with recurrent right breast mucinous carcinoma who presents for bilateral mastectomies and immediate reconstruction. She has prior history of breast cancer diagnosed in 2015 and underwent lumpectomy, chemotherapy
with radiation. Underwent bilateral mastectomies with MEME FLAP with Drs. Salazar and Alec. Postoperatively transferred to ICU for further management.
Recurrent right breast cancer status post B/l mastectomies with MEME FLAP 08/26/24
Postop atelectasis
Nocturnal O2 use
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
Abnormal pap 1993: cervical dysplasia s/p LEEP
HLD
History of R invasive ductal carcinoma breast 2016 s/p lumpectomy/chemo/radiation
Seasonal allergies
Tubal ligation 1998
Cervical spine surgery
D and C 2016
Plan
S/p BL mastectomies (with Dr Salazar) with MEME FLAP by plastic surgery 08/26/24
Observe overnight following procedure
Follow CBC, neurovascular checks
Follow q1 blood flow monitoring to flap
Notify surgical team if compromised
Avoid pressors
Bolus IVFs for hypotension
Pain control
Encouraged patient use prior to movement/PT
No prior h/o lung disease, nonsmoker
CXR without acute findings
Encourage IS, OOB today
Nocturnal O2 use noted, could be due to postop atel + undiagnosed CARLENE
Can eval as OP if ongoing
Restart diet per protocol/advance as tolerated
GI ppx if indicated/history of GERD
DVT ppx held, SCDs
Creat at baseline, follow UO
No signs/symptoms suspicious for infectious etiology at this time.
Placed on perioperative abx per surgical team
Encourage OOB, early mobility
PT/OT
Incentive spirometer encouraged to prevent postoperative atelectasis
DVT ppx as indicated postop
SCDs
Discharge planning in AM
Diagnostic Data
Chest X-Ray: 08/27/24- Low lung volumes. Minor bibasilar opacity likely representing subsegmental atelectasis.
CT Scan:
Echo: 2017- Normal left ventricular size. Normal left ventricular systolic function. Left ventricular ejection fraction is 65-70%. Mild left ventricular hypertrophy with prominent basal septum. Normal regional wall motion. Stage I diastolic
dysfunction suggestive of abnormal relaxation. Normal right ventricular size. Normal right ventricular systolic function. No significant valvular disease. No prior study available for comparison.
PFT's:
Reports and relevant images were personally reviewed.
-----
Critical care time 31 mins -- this includes review of history, physical exam, medications, hemodynamic/ventilator parameters, laboratory data, imaging and discussion with house staff, pharmacy, respiratory therapy, picking table worker, and nursing.
Subjective Dataa
Subjective Data
Date of Service:
Date of Service: August 29, 2024
Chief Complaint: Practice Consultant Follow Up
Subjective:
Doing well, stable on RA
Pain is well controlled
Sitting in chair
Objective Data
Data Reviewed
Vital Signs / I&O / Oxygen:
Vital Signs
Temp Pulse Resp BP Pulse Ox
98.2 F 91 14 109/73 98
08/28/24 15:14 08/29/24 05:30 08/29/24 05:30 08/29/24 05:30 08/29/24 05:42
Intake and Output
08/28/24 08/29/24 08/30/24
06:59 06:59 06:59
Intake Total 1500 / 1625 2550 / 2550
Output Total 2380 / 2380 1986 / 1986
Balance -880 / -755 563 / 563
SaO2 98
Nasal Cannula flow liters per 3
minute
Physical Exam
General: Comfortable, Pain and Other (NAD)
HEENT: Normocephalic, Anicteric and Moist Mucous Membranes
Cardiovascular: S1-S2 and Regular Rhythm
Respiratory: Clear (decreased at bases) and Non-Labored Respirations
GI: Soft, Non Distended and Tender
Neurology: Awake, Alert, Oriented and No Motor Deficits
Skin: Warm, Dry and Good Color
Labs/Micro/Reports
Lab Data
08/29/24 04:17
08/29/24 04:17
--- NOTE | 2024-08-29 08:59 | W.PN.UPDATE ---
Update Note
Progress Note Update
I saw the pt yesterday POD #1. She was in chair comfortable. Ecchymosis right lateral breast and chest wall, not unexpected. Pt was tolerating
PO intake. Feels 'loupy' from the Valium but understands importance. Final pathology pending. Progressing well, continue MEME flap protocol.
--- NOTE | 2024-08-29 09:00 | PTCARENOTE ---
Rec'd pt at 0700 awake resting in bed. Pulse checks completed with offgoing RN. Overall states she is feeling good- just concerned about what she can do and what to expect. Explanations given. Speech is clear. TAL. Pt instructed to stay a little
hunched over with walking and getting oob and not pushing off with her arms. Skin as noted- Bilateral breast paddles are pink and body temp with good signals. R breast with some purple ecchymosis on surrounding breast tissue. L breast with darker
purple ecchymosis especially on the L lateral and underside aspect of the breast. Also noted to have 2 fluid filled blisters on the L breast tissue. Breasts bilaterally are soft and warm to touch. Dr. Michael in to exam and updated. Pt with lower abd
incision with dressing over that is D+I. ABd binder in place. [address] R and L lat breast and R and L lat abd - all draining serosang drainage. VIOLA drains stripped, emptied and bulb suction in place. Very minimal drainage from R Lower
abd VIOLA C. Skin otherwise D+I. Respirs are unlabored on 3L nc with sats of 96%. BS are sl decreased at the bases otherwise clear. Getting about 1200 ml on IS. Monitor SR. + pulses. VS as documented. Pt with + BS. Does admit to some lower abd
soreness. Denies nausea. Admits to passing flatus but not needing to have a BM yet. Denies need to void currently. Capped int intact L hand. Pt assisted with repositioning. Plan of care reviewed with pt. Call smith in reach. Remains in beach chair
position.
--- NOTE | 2024-08-29 09:05 | W.PN.PLAS ---
Today's Communication
-
Home tomorrow with visiting nurse
Progress Note
Subjective Data
Doing well, denies shortness of breath
Subjective: Tolerating Regular Diet, Ambulatory, Sullivan Removed and Patient Voided
Objective Data
Vital Signs
Temp Pulse Resp BP Pulse Ox
98.4 F 95 16 106/68 90
08/30/24 03:50 08/30/24 06:00 08/30/24 06:00 08/30/24 06:00 08/30/24 06:00
Intake and Output
08/29/24 08/30/24 08/31/24
06:59 06:59 06:59
Intake Total 2550 / 2550 1390 / 1390
Output Total 2337 / 2337 960 / 960
Balance 213 / 213 430 / 430
Intake:
Oral fluids 2300 / 2300 1390 / 1390
IV fluids (Total) 250 / 250
Lr 1,000 ml @ 125 mls/hr IV . 250 / 250
Q8H DEEPA Rx#:[id number]
Output:
Drain Output (Total) 557 / 557 560 / 560
A 200 / 200 172 / 172
B 185 / 185 167 / 167
C 2 / 2 29 / 29
D 170 / 170 192 / 192
Urine, Voided 1780 / 1780 400 / 400
Other:
Number of approximated MODERATE 1
amounts of urine
Number of approximated LARGE 1
amounts of urine
PEX:
Well perfused breast flaps, doppler signals intact
No e/o venous congestion
Drains serosang with appropriate output
some mastectomy skin ecchymoses as expected, early skin flap necrosis on L
Abd dressings intact
Lab Results
08/30/24 04:50
08/30/24 04:50
Assessment / Plan
POD2 for bilateral mstx and immediate MEME flap recon
Free Flap protocol
q1h flap checks
OOB to ambulate
Sullivan out, voided
SCDs/Lovenox
PO pain
Reg diet
PT/OT today
[2024-08-29] MEDS: SENOKOT 8.6 MG PO ×2 (09:16→19:58)
[2024-08-29] MEDS: COLACE 100 MG PO ×3 (09:16→19:58)
[2024-08-29] MEDS: VALIUM 5 MG PO ×3 (09:16→22:02)
[2024-08-29] MEDS: TYLENOL 1000 MG PO ×4 (09:16→22:02)
[2024-08-29] MEDS: LIPITOR 20 MG PO (09:16)
--- NOTE | 2024-08-29 10:10 | PTCARENOTE ---
Good appetite for breakfast. No c/o nausea. Pt assisted oob to the BSC then to the year. Voiding clear yellow urine. Breast paddles/tissue unchanged. Call smith in reach.
--- NOTE | 2024-08-29 12:30 | PTCARENOTE ---
Remains sitting oob in the chair. States she dozed off for a little and feels good. Admits to mild lower abd and chest to abd discomfort but nothing she needed anything else for pain for. Breast paddle checks are unchanged. Lateral and lower L
breast tissue remains with dark purple ecchymosis and 2 intact blisters. Bilateral breasts remain soft and warm. Breast paddles remain pink and warm with good signals. Call smith remains in reach.
--- NOTE | 2024-08-29 14:20 | PTCARENOTE ---
Admits to sl tenderness in her R breast. Breast paddles - signals unchanged. Breasts are warm. Ecchymosis unchanged. PT in to work with pt and pt ambulated in the hallway then voided in the bathroom. No other changes.
--- NOTE | 2024-08-29 15:09 | CHAP ---
Emotional and spiritual support provided, prayer blanket given.
--- NOTE | 2024-08-29 16:30 | PTCARENOTE ---
Dozed briefly after ambulating in the cotto. Admits that walking definately made her tired. Encouraged the use of IS- sats anywhere from 91-95%. VS as documented. Breast flaps and Breast tissue unchanged. ABd dressing is D+I. Abd binder remains in
place. ANDRADE drain outputs as documented. Draining serosang to watery sanginuous drainage. Dinner ordered. Family at the bedside.
[2024-08-29] MEDS: FLUSH (NSS) 1 FLUSH IV (16:35)
[2024-08-29] MEDS: LOVENOX 40 MG SC (17:51)
--- NOTE | 2024-08-29 18:41 | PTCARENOTE ---
Good appetite for dinner. in and showed how the ANDRADE drains work and how to empty them and strip them if they are to be stripped when she goes home. Small amt of old drainage on lower abd incision. No other changes
[2024-08-29] MEDS: ULTRAM 100 MG PO (19:58)
--- NOTE | 2024-08-29 21:09 | PTCARENOTE ---
Assumed care of pt at 1900. Pt is A/O x4, pleasant and cooperative with care. Breast paddle checks done in tandem with offgoing RN at change of shift, strong doppler signals to b/l breasts, paddles pink/warm, left breast noted to be more ecchymotic
than right breast with intact blister under left lateral breast. Breast paddle checks ongoing Q4 hours. x4 ANDRADE drains with serosanguinous drainage. Abd binder in place. Abd incision dressing C/D/I. See breast paddle flowsheet and nursing shift
assessment flowsheet for full assessment details on patient. Pt ambulating from chair or bed to bathroom with minimal standby assistance, is able to do ADLs mostly by herself. Medicated with dose of PRN Ultram for mild pain at around 1999, see EMAR.
Pt resting in bed with eyes closed, call smith and personal items within reach.
[2024-08-30] VITALS (10 sets, daily range): BP systolic 104–117; BP diastolic 67–85; BMI 30.6
[2024-08-30] MEDS: NEURONTIN 100 MG PO ×2 (00:12→07:44)
--- NOTE | 2024-08-30 00:34 | PTCARENOTE ---
Physical assessment unchanged, breast paddle assessment unchanged b/l, strong doppler signals present b/l, blister remains intact under left breast. Pt stating that her pain is controlled at the moment and feels that she is getting some sleep. ANDRADE
drains stripped/emptied, remains serosanguinous with drain D having the most output and more red in color.
--- NOTE | 2024-08-30 05:20 | PTCARENOTE ---
Physical assessment unchanged. B/L breast paddle assessment unchanged, strong signals in b/l breast paddles, ecchymosis unchanged, blister under left lateral breast is still intact. Pt ambulated to bathroom to urinate, + flatus, no BM yet, ANDRADE drains
stripped/emptied. Gown changed. Pt states that her pain is controlled at this time, made her aware that next scheduled meds are at 0800 so if she feels that she needs anything for pain in the mean time, she can have Ultram at any point. AM labs
done. Pt now resting again.
[2024-08-30 05:27] LABS: Hematocrit 27.1 % (37.0-47.0); Hemoglobin 9.2 g/dL (12.0-16.0); Mean Corp Hgb Conc. 33.9 g/dL (33.0-37.0); Mean Corpuscular Hgb 31.6 pg (27.0-31.0); Mean Corpuscular Volume 93.1 fL (81.0-99.0); Mean Platelet Volume 9.9 fL (7.4-10.4); Platelet Count 241 10^3/uL (130-400); Red Blood Cell Count 2.91 10^6/uL (4.20-5.40); Red Cell Dist. Width 12.7 % (11.5-14.5); White Blood Cell Count 10.7 10^3/uL (4.8-10.8)
[2024-08-30 05:48] LABS: Blood Urea Nitrogen 15 mg/dl (7-17); Calcium 8.5 mg/dl (8.4-10.2); Carbon Dioxide 28 mmol/L (22-30); Chloride 105 mmol/L (98-107); Estimated Creatinine Clearance 100 ml/min; Glucose 113 mg/dl (70-99); Magnesium 1.7 mg/dl (1.6-2.3); Phosphorus 3.2 mg/dl (2.5-4.5); Potassium 3.8 mmol/L (3.5-5.1); Sodium 140 mmol/L (135-145); eGFR > 60.00
--- NOTE | 2024-08-30 07:30 | W.PN.INTV ---
Today's Communication / Plan
Recommendations
Doing well, OOB to chair, stable on RA
Pain control
Further postop management per team
Discharge planning today
Assessment
-
Patient is a 59-year-old female with recurrent right breast mucinous carcinoma who presents for bilateral mastectomies and immediate reconstruction. She has prior history of breast cancer diagnosed in 2015 and underwent lumpectomy, chemotherapy
with radiation. Underwent bilateral mastectomies with MEME FLAP with Drs. Salazar and Alec. Postoperatively transferred to ICU for further management.
Recurrent right breast cancer status post B/l mastectomies with MEME FLAP 08/26/24
Postop atelectasis
Nocturnal O2 use
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
Abnormal pap 1993: cervical dysplasia s/p LEEP
HLD
History of R invasive ductal carcinoma breast 2016 s/p lumpectomy/chemo/radiation
Seasonal allergies
Tubal ligation 1998
Cervical spine surgery
D and C 2016
Plan
S/p BL mastectomies (with Dr Salazar) with MEME FLAP by plastic surgery 08/26/24
Observe overnight following procedure
Follow CBC, neurovascular checks
Follow q1 blood flow monitoring to flap
Notify surgical team if compromised
Avoid pressors
Bolus IVFs for hypotension
Pain control
Encouraged patient use prior to movement/PT
No prior h/o lung disease, nonsmoker
CXR without acute findings
Encourage IS, OOB today
Nocturnal O2 use noted, could be due to postop atel + undiagnosed CARLENE
Can eval as OP if ongoing
Restart diet per protocol/advance as tolerated
GI ppx if indicated/history of GERD
DVT ppx held, SCDs
Creat at baseline, follow UO
No signs/symptoms suspicious for infectious etiology at this time.
Placed on perioperative abx per surgical team
Encourage OOB, early mobility
PT/OT
Incentive spirometer encouraged to prevent postoperative atelectasis
DVT ppx as indicated postop
SCDs
Discharge planning
Diagnostic Data
Chest X-Ray: 08/27/24- Low lung volumes. Minor bibasilar opacity likely representing subsegmental atelectasis.
CT Scan:
Echo: 2017- Normal left ventricular size. Normal left ventricular systolic function. Left ventricular ejection fraction is 65-70%. Mild left ventricular hypertrophy with prominent basal septum. Normal regional wall motion. Stage I diastolic
dysfunction suggestive of abnormal relaxation. Normal right ventricular size. Normal right ventricular systolic function. No significant valvular disease. No prior study available for comparison.
PFT's:
Reports and relevant images were personally reviewed.
-----
Critical care time 31 mins -- this includes review of history, physical exam, medications, hemodynamic/ventilator parameters, laboratory data, imaging and discussion with house staff, pharmacy, respiratory therapy, enrollment services dean, and nursing.
Subjective Dataa
Subjective Data
Date of Service:
Date of Service: August 30, 2024
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
Subjective:
Doing well today, complaints of pain at abdomen
Otherwise, no new complaints
Sitting in chair, stable on RA
Objective Data
Data Reviewed
Vital Signs / I&O / Oxygen:
Vital Signs
Temp Pulse Resp BP Pulse Ox
98.4 F 95 16 106/68 90
08/30/24 03:50 08/30/24 06:00 08/30/24 06:00 08/30/24 06:00 08/30/24 06:00
Intake and Output
08/29/24 08/30/24 08/31/24
06:59 06:59 06:59
Intake Total 2550 / 2550 1390 / 1390
Output Total 2337 / 2337 960 / 960
Balance 213 / 213 430 / 430
SaO2 90
Nasal Cannula flow liters per 2
minute
Physical Exam
General: Comfortable, Pain and Other (NAD)
HEENT: Normocephalic, Anicteric and Moist Mucous Membranes
Cardiovascular: S1-S2 and Regular Rhythm
Respiratory: Clear (decreased at bases) and Non-Labored Respirations
GI: Soft, Non Distended and Tender
Neurology: Awake, Alert, Oriented and No Motor Deficits
Skin: Warm, Dry and Good Color
Labs/Micro/Reports
Lab Data
08/30/24 04:50
08/30/24 04:50
[2024-08-30] MEDS: COLACE 100 MG PO (07:44)
[2024-08-30] MEDS: SENOKOT 8.6 MG PO (07:44)
[2024-08-30] MEDS: LIPITOR 20 MG PO (07:45)
[2024-08-30] MEDS: VALIUM 5 MG PO (07:45)
[2024-08-30] MEDS: TYLENOL 1000 MG PO (08:33)
--- NOTE | 2024-08-30 09:26 | W.PN.PLAS ---
Today's Communication
-
today with visiting nurse and follow-up on Sunday
Progress Note
Subjective Data
doing well, pain well-controlled, ambulatory denies shortness of breath
Subjective: Tolerating Regular Diet, Ambulatory and Patient Voided
Objective Data
Vital Signs
Temp Pulse Resp BP Pulse Ox
98.4 F 95 16 106/68 90
08/30/24 03:50 08/30/24 06:00 08/30/24 06:00 08/30/24 06:00 08/30/24 06:00
Intake and Output
08/29/24 08/30/24 08/31/24
06:59 06:59 06:59
Intake Total 2550 / 2550 1390 / 1390
Output Total 2337 / 2337 960 / 960
Balance 213 / 213 430 / 430
Intake:
Oral fluids 2300 / 2300 1390 / 1390
IV fluids (Total) 250 / 250
Lr 1,000 ml @ 125 mls/hr IV . 250 / 250
Q8H DEEPA Rx#:[id number]
Output:
Drain Output (Total) 557 / 557 560 / 560
A 200 / 200 172 / 172
B 185 / 185 167 / 167
C 2 / 2 29 / 29
D 170 / 170 192 / 192
Urine, Voided 1780 / 1780 400 / 400
Other:
Number of approximated MODERATE 1
amounts of urine
Number of approximated LARGE 1
amounts of urine
PEX:
Well perfused breast flaps, doppler signals intact
No e/o venous congestion
Drains serosang with appropriate output
some mastectomy skin ecchymoses as expected, early skin flap necrosis on L
Abd dressings intact
Lab Results
08/30/24 04:50
08/30/24 04:50
Assessment / Plan
POD3 for bilateral mstx and immediate MEME flap recon
Free Flap protocol
q4h flap checks
OOB to ambulate
Sullivan out, voided
SCDs/Lovenox
PO pain
Reg diet
PT/OT
Silvadene to the left mastectomy skin flap wound
Home today with visiting nurse
--- NOTE | 2024-08-30 09:30 | PTCARENOTE ---
Rec'd pt at 0700 awake alert and oriented resting in bed. Breast paddle checks completed with offgoing RN. Pt looking forward to going home today. Admitted to some soreness mostly at the ANDRADE sites-R lower abd ANDRADE drain site. All sites wnl. Speech
clear. Denies dizziness or headache. Skin is pink wm and dry. Dr. Michael in at 0900 - Bilateral breast paddles are pink with good doppler signals. Both breast with ecchymosis on breast tissue. L breast more ecchymotic than the R but not more than
yesterday. L breast remained with fluid filled blister on breast tissue that was opened up by Dr. Michael. Dressings removed from lower abd and umbilicus and incisions approximated. No drainage. Bilateral breast and Bilateral Abd ANDRADE drains sites
changed to CLARA. ANDRADE's Stripped and emptied as documented for serosang drainage. Remain to bulb suction. New abd binder placed. Respirs are shallow but non-labored on RA with sats of 95%. BS are sl decreased at the bases otherwise clear. Getting
[id number] on IS. Monitor SR. VS as documented. + pulses. Abd is soft-sl tender with + BS. Denies nausea. Assisted to the bathroom and voided yellow urine. Gait is slow but steady walking and after breakfast this am worked with PT. Capped int intact
L hand. Dr. Michael extensively went over DC instructions with pt and her son as well as who arrived while he was explaining things. All verbalized understanding. Plan of care reviewed. Call smith in reach.
--- NOTE | 2024-08-30 09:33 | W.DCSUMMARY ---
Discharge Summary
Discharge Data
Date of Admission: 08/27/24
Date of Discharge: 08/30/24
-
Pending Results: No
Hospital Course
Admitted for flap monitoring after immediate MEME flap reconstruction at the time of bilateral mastectomy
Routine postoperative course
No issues with flap
Worked with PT/OT
CM arranged VN
Able to ambulate, tolerating regular diet, voiding, pain controlled on po meds
Discharge Plan
-
Patient Disposition: Home (Routine Discharge)
Discharge Diagnosis/Procedures: s/p b/l mstx and immediate MEME flap recon
Condition: Good
Diet: Regular
Activity: No strenuous activity
Additional Activity: No heavy lifting >10lbs
Driving Restrictions: Not until seen by your Dr
Bathing Restrictions: OK to Shower
Other Services: VN
Wound Care: Strip and record drain output twice daily, soap and water to wounds, aquaphor as desired, silvadene to blister
Referrals:
Uzma Andrews, [Active] - in six weeks (sleep, nocturnal O2 low )
Jay Hernandez PA-C [Family Provider] -
Prescriptions:
New
tramadol 50 mg Tablet
50 mg PO Q6HPRN PRN (Reason: mild pain) 7 Days Qty: 30 0RF
acetaminophen [Tylenol Extra Strength] 500 mg Tablet
1,000 mg PO QID 30 Days Qty: 240 0RF
docusate sodium 100 mg Capsule
100 mg PO TID 14 Days Qty: 42 0RF
gabapentin 100 mg Capsule
100 mg PO Q8 30 Days Qty: 90 3RF
diazepam 5 mg Tablet
5 mg PO TID 14 Days Qty: 42 0RF
silver sulfadiazine [Silvadene] 1 % cream
1 applic topical DAILY PRN (Reason: blisters) Qty: 50 1RF
Continued
multivitamin Tablet
1 tab PO DAILY
ascorbic acid (vitamin C) [Vitamin C] 1,000 mg Tablet
1,000 PO BID
atorvastatin 20 mg Tablet
20 mg PO DAILY
lisinopril 20 mg Tablet
20 mg PO DAILY
omeprazole 20 mg Capsule,Delayed Release(Dr/Ec)
20 mg PO DAILY PRN (Reason: indigestion)
B-complex with vitamin C Tablet
1 tab PO DAILY
cholecalciferol (vitamin D3) [Vitamin D3] 50 mcg (2,000 unit) Tablet
50 mcg PO DAILY
fenofibrate 54 mg Tablet
145 mg PO DAILY
Discharge Orders:
Discharge Patient (As Directed); Ordered 08/30/24
Ordered By: Eamon Michael
Discharge Date and Time
Print Language: TELUGU
--- NOTE | 2024-08-30 10:36 | CM ---
CM following re: discharge planning.
Reviewed pt's chart, met with pt and pt's at bedside.
Discharge order noted. Both pt and her are aware and they are aware that [facility] RN will visit the pt tomorrow as required by MD recommendation.
Please fax discharge instructions to [facility] at [phone].
D/C plan: home with [facility] with a requested RN visits starting tomorrow
--- NOTE | 2024-08-30 10:45 | PTCARENOTE ---
DC instructions reviewed with pt, and son. Verbalized understanding. Capped int dc'd from the L hand. Site wnl. 1045 Pt discharged via wheelchair with and son. Left with DC instructions and belongings. Prior to leaving reinstructed
and son on the management/stripping/emptying of ANDRADE drains.
== END 2024-08-30 12:31 | disposition home health service (06) | DRG 580 ==
LOC: ICU 06:01
PROVIDERS: Nurse Practitioner Family; Nurse Practitioner Primary Care; ADMITTING PHYSICIAN Surgery Plastic and Reconstructive Surgery; ATTENDING PHYSICIAN Surgery; CONSULT PHYSICIAN Internal Medicine; FAMILY PHYSICIAN Physician Assistant Medical
PROC: 0HRV077 Replacement of Bilateral Breast using Deep Inferior Epigastric Artery Perforator Flap, Open Approach (ICD-10-PCS; 2024-08-27)
PROC: 07B80ZX Excision of Right Internal Mammary Lymphatic, Open Approach, Diagnostic (ICD-10-PCS; 2024-08-27)
PROC: 07B90ZX Excision of Left Internal Mammary Lymphatic, Open Approach, Diagnostic (ICD-10-PCS; 2024-08-27)
PROC: 0HTV0ZZ Resection of Bilateral Breast, Open Approach (ICD-10-PCS; 2024-08-27)
DX: C50.411 Malignant neoplasm of upper-outer quadrant of right female breast (principal); J98.11 Atelectasis; N64.89 Other specified disorders of breast; E11.9 Type 2 diabetes mellitus without complications; E78.5 Hyperlipidemia, unspecified; Z92.3 Personal history of irradiation; Z87.891 Personal history of nicotine dependence; Z17.0 Estrogen receptor positive status [ER+]
CPT/HCPCS: 88305; 88307; 36415; 71045; 80048; 80053; 83735; 84100; 85014; 85018; 85025; 85027; 88342; 93005; 97116; 97163; A4648; C1729; C1781; P9045

== ENCOUNTER 2024-10-24 09:56 | Outpatient (RCR) | payer BC, SELFPAY | END 2024-10-24 23:59 | disposition home or self-care (01) | LOC: RPT 09:56 | PROVIDERS: ATTENDING PHYSICIAN Surgery Plastic and Reconstructive Surgery; FAMILY PHYSICIAN Physician Assistant Medical | DX: C50.411 Malignant neoplasm of upper-outer quadrant of right female breast (principal); C50.419 Malignant neoplasm of upper-outer quadrant of unspecified female breast (principal); L90.5 Scar conditions and fibrosis of skin; M96.2 Postradiation kyphosis; Z73.6 Limitation of activities due to disability; Z90.13 Acquired absence of bilateral breasts and nipples | CPT/HCPCS: 97110; 97140; 97163; 97530 ==

== ENCOUNTER 2024-11-20 16:50 | Outpatient (RCR) | payer BC, SELFPAY | END 2024-11-20 23:59 | disposition home or self-care (01) | LOC: RPT 16:50 | PROVIDERS: ATTENDING PHYSICIAN Surgery Plastic and Reconstructive Surgery; FAMILY PHYSICIAN Physician Assistant Medical | DX: C50.411 Malignant neoplasm of upper-outer quadrant of right female breast (principal); L90.5 Scar conditions and fibrosis of skin; M96.2 Postradiation kyphosis; Z73.6 Limitation of activities due to disability; Z90.13 Acquired absence of bilateral breasts and nipples; C50.419 Malignant neoplasm of upper-outer quadrant of unspecified female breast | CPT/HCPCS: 97110; 97112; 97140 ==

== ENCOUNTER 2024-12-23 16:51 | Outpatient (RCR) | payer BC, SELFPAY | END 2024-12-23 23:59 | disposition home or self-care (01) | LOC: RPT 16:51 | PROVIDERS: ATTENDING PHYSICIAN Surgery Plastic and Reconstructive Surgery; FAMILY PHYSICIAN Physician Assistant Medical | DX: C50.411 Malignant neoplasm of upper-outer quadrant of right female breast (principal); L90.5 Scar conditions and fibrosis of skin; M96.2 Postradiation kyphosis; Z73.6 Limitation of activities due to disability; Z90.13 Acquired absence of bilateral breasts and nipples; C50.419 Malignant neoplasm of upper-outer quadrant of unspecified female breast | CPT/HCPCS: 97110; 97112; 97140 ==

== ENCOUNTER 2025-01-20 16:45 | Outpatient (RCR) | payer BC, SELFPAY | END 2025-01-20 23:59 | disposition home or self-care (01) | LOC: RPT 16:45 | PROVIDERS: ATTENDING PHYSICIAN Surgery Plastic and Reconstructive Surgery; FAMILY PHYSICIAN Physician Assistant Medical | DX: C50.411 Malignant neoplasm of upper-outer quadrant of right female breast (principal); L90.5 Scar conditions and fibrosis of skin; M96.2 Postradiation kyphosis; Z73.6 Limitation of activities due to disability; Z90.13 Acquired absence of bilateral breasts and nipples; C50.419 Malignant neoplasm of upper-outer quadrant of unspecified female breast | CPT/HCPCS: 97110; 97112; 97140 ==

== ENCOUNTER → 2025-01-23 10:01 | Outpatient (REF) | payer BC, SELFPAY ==
[2025-01-23 11:06] LABS: % Basophils 1.4 % (0-2); % Eosinophils 1.9 % (0-6); % Immature Granulocytes 0.3 % (0-0.5); % Lymphocytes 35.4 % (20.5-51.1); Absolute Basophils 0.1 10^3/uL (0-0.2); Absolute Eosinophils 0.1 10^3/uL (0-0.7); Absolute Lymphocytes 2.5 10^3/uL (1.2-3.4); Absolute Monocytes 0.4 10^3/uL (0.1-0.6); Absolute Neutrophils 3.9 10^3/uL (1.4-6.5); Hematocrit 43.5 % (37.0-47.0); Hemoglobin 14.1 g/dL (12.0-16.0); Mean Corp Hgb Conc. 32.4 g/dL (33.0-37.0); Mean Corpuscular Hgb 28.8 pg (27.0-31.0); Mean Corpuscular Volume 88.8 fL (81.0-99.0); Mean Platelet Volume 9.8 fL (7.4-10.4); Nucleated Red Blood Cells % 0 %; Platelet Count 336 10^3/uL (130-400); Red Cell Dist. Width 13.6 % (11.5-14.5)
[2025-01-23 11:23] LABS: Blood Urea Nitrogen 13 mg/dl (7-17); Calcium 10.4 mg/dl (8.4-10.2); Carbon Dioxide 24 mmol/L (22-30); Chloride 104 mmol/L (98-107); Glucose 107 mg/dl (70-99); Potassium 4.2 mmol/L (3.5-5.1); Sodium 140 mmol/L (135-145); eGFR > 60.00
== END ==
LOC: RCS 10:01
PROVIDERS: ATTENDING PHYSICIAN Orthopaedic Surgery; FAMILY PHYSICIAN Physician Assistant Medical
DX: Z01.818 Encounter for other preprocedural examination (principal)
CPT/HCPCS: 36415; 80048; 85025; 93005

== ENCOUNTER → 2025-01-27 10:16 | Outpatient (REF) | payer BC, SELFPAY ==
[2025-01-27 12:12] LABS: ALT (SGPT) 47 U/L (0-35); AST (SGOT) 33 U/L (14-36); Albumin 4.8 g/dl (3.5-5.0); Alkaline Phosphatase 77 U/L (38-126); Direct Bilirubin 0.2 mg/dl (0.0-0.4); HDL Cholesterol 59 mg/dl; Total Bilirubin 1.1 mg/dl (0.2-1.3); Total Protein 7.6 g/dl (6.3-8.2); Triglyceride 106 mg/dl (10-149); Very Low Density Lipoprotein 21 mg/dl (0-30)
[2025-01-27 12:15] LABS: LDL Cholesterol, Calculated 94 mg/dl; Total Cholesterol 174 mg/dl (50-199)
== END ==
LOC: REG 10:16
PROVIDERS: ATTENDING PHYSICIAN Internal Medicine Hematology & Oncology; FAMILY PHYSICIAN Physician Assistant Medical
DX: C50.419 Malignant neoplasm of upper-outer quadrant of unspecified female breast (principal)
CPT/HCPCS: 36415; 80061; 80076

== ENCOUNTER → 2025-01-29 11:20 | Outpatient (REF) | payer BC, SELFPAY | LOC: RAD 11:20 | PROVIDERS: ATTENDING PHYSICIAN Internal Medicine Hematology & Oncology; FAMILY PHYSICIAN Physician Assistant Medical | DX: C50.419 Malignant neoplasm of upper-outer quadrant of unspecified female breast (principal) | CPT/HCPCS: 77080 ==

== ENCOUNTER 2025-01-30 06:16 | Day surgery (SDC) | payer BC, SELFPAY ==
[2025-01-30] VITALS (9 sets, daily range): BP systolic 112–155; BP diastolic 68–94; BMI 29.4
[2025-01-30] MEDS: CELEBREX 200 MG PO (11:43)
[2025-01-30] MEDS: NORMOSOL-R/PLASMALYTE-A 1000 IV (11:47)
[2025-01-30] MEDS: DILAUDID 0.25 MG IV ×2 (16:27→16:41)
== END 2025-01-30 18:07 | disposition home or self-care (01) ==
LOC: SDS 06:16
PROVIDERS: ATTENDING PHYSICIAN Orthopaedic Surgery; FAMILY PHYSICIAN Physician Assistant Medical
DX: S83.232A Complex tear of medial meniscus, current injury, left knee, initial encounter (principal); X58.XXXA Exposure to other specified factors, initial encounter; M22.42 Chondromalacia patellae, left knee
CPT/HCPCS: 29881

== ENCOUNTER 2025-02-17 16:39 | Outpatient (RCR) | payer BC, SELFPAY | END 2025-02-17 23:59 | disposition home or self-care (01) | LOC: RPT 16:39 | PROVIDERS: ATTENDING PHYSICIAN Surgery Plastic and Reconstructive Surgery; FAMILY PHYSICIAN Physician Assistant Medical | DX: C50.419 Malignant neoplasm of upper-outer quadrant of unspecified female breast (principal); L90.5 Scar conditions and fibrosis of skin; M96.2 Postradiation kyphosis; Z73.6 Limitation of activities due to disability; C50.411 Malignant neoplasm of upper-outer quadrant of right female breast; Z90.13 Acquired absence of bilateral breasts and nipples | CPT/HCPCS: 97110; 97140 ==

== ENCOUNTER 2025-03-24 16:46 | Outpatient (RCR) | payer BC, SELFPAY | END 2025-03-24 23:59 | disposition home or self-care (01) | LOC: RPT 16:46 | PROVIDERS: ATTENDING PHYSICIAN Surgery Plastic and Reconstructive Surgery; FAMILY PHYSICIAN Physician Assistant Medical | DX: C50.411 Malignant neoplasm of upper-outer quadrant of right female breast (principal); L90.5 Scar conditions and fibrosis of skin; M96.2 Postradiation kyphosis; Z73.6 Limitation of activities due to disability; Z90.13 Acquired absence of bilateral breasts and nipples; C50.419 Malignant neoplasm of upper-outer quadrant of unspecified female breast | CPT/HCPCS: 97110; 97112; 97140 ==

== ENCOUNTER 2025-04-14 16:41 | Outpatient (RCR) | payer BC, SELFPAY | END 2025-04-14 23:59 | disposition home or self-care (01) | LOC: RPT 16:41 | PROVIDERS: ATTENDING PHYSICIAN Surgery Plastic and Reconstructive Surgery; FAMILY PHYSICIAN Physician Assistant Medical | DX: C50.411 Malignant neoplasm of upper-outer quadrant of right female breast (principal); L90.5 Scar conditions and fibrosis of skin; M96.2 Postradiation kyphosis; Z73.6 Limitation of activities due to disability; Z90.13 Acquired absence of bilateral breasts and nipples; C50.419 Malignant neoplasm of upper-outer quadrant of unspecified female breast | CPT/HCPCS: 97110; 97112 ==

== ENCOUNTER → 2025-04-21 17:18 | Outpatient (REF) | payer BC, SELFPAY | LOC: CLAB 17:18 | PROVIDERS: Pathology Anatomic Pathology & Clinical Pathology; ATTENDING PHYSICIAN Dermatology | DX: D48.5 Neoplasm of uncertain behavior of skin (principal) | CPT/HCPCS: 88305 ==

== ENCOUNTER 2025-04-30 16:46 | Outpatient (RCR) | payer BC, SELFPAY | END 2025-04-30 23:59 | disposition home or self-care (01) | LOC: RPT 16:46 | PROVIDERS: ATTENDING PHYSICIAN Surgery Plastic and Reconstructive Surgery; FAMILY PHYSICIAN Physician Assistant Medical | DX: C50.419 Malignant neoplasm of upper-outer quadrant of unspecified female breast (principal); L90.5 Scar conditions and fibrosis of skin; M96.2 Postradiation kyphosis; Z73.6 Limitation of activities due to disability; Z90.13 Acquired absence of bilateral breasts and nipples; C50.411 Malignant neoplasm of upper-outer quadrant of right female breast | CPT/HCPCS: 36415; 80053; 97110 ==

== ENCOUNTER 2025-05-20 14:58 | Outpatient (RCR) | payer BC, SELFPAY ==
[2025-05-20 15:12] VITALS: BP 157/92
[2025-05-20] MEDS: PROLIA 60 MG SC (15:22)
== END 2025-05-21 09:44 | disposition home or self-care (01) ==
LOC: OID 14:58
PROVIDERS: ATTENDING PHYSICIAN Internal Medicine Hematology & Oncology; FAMILY PHYSICIAN Physician Assistant Medical
DX: C50.419 Malignant neoplasm of upper-outer quadrant of unspecified female breast (principal); M81.0 Age-related osteoporosis without current pathological fracture
CPT/HCPCS: 96372; J0897

== ENCOUNTER 2025-06-18 15:00 | Outpatient (RCR) | payer BC, SELFPAY | END 2025-06-18 23:59 | disposition home or self-care (01) | LOC: RPT 15:00 | PROVIDERS: ATTENDING PHYSICIAN Surgery Plastic and Reconstructive Surgery; FAMILY PHYSICIAN Physician Assistant Medical | DX: C50.419 Malignant neoplasm of upper-outer quadrant of unspecified female breast (principal); L90.5 Scar conditions and fibrosis of skin; M96.2 Postradiation kyphosis; Z73.6 Limitation of activities due to disability; Z90.13 Acquired absence of bilateral breasts and nipples; C50.411 Malignant neoplasm of upper-outer quadrant of right female breast | CPT/HCPCS: 97110 ==

== ENCOUNTER → 2025-06-24 10:37 | Outpatient (REF) | payer BC, SELFPAY ==
[2025-06-24 11:25] LABS: Hematocrit 43.7 % (37.0-47.0); Hemoglobin 14.7 g/dL (12.0-16.0); Mean Corp Hgb Conc. 33.6 g/dL (33.0-37.0); Mean Corpuscular Volume 89.4 fL (81.0-99.0); Nucleated Red Blood Cells % 0 %; Platelet Count 328 10^3/uL (130-400); Red Cell Dist. Width 12.3 % (11.5-14.5)
[2025-06-24 11:48] LABS: ALT (SGPT) 49 U/L (0-35); AST (SGOT) 37 U/L (14-36); Albumin 5.2 g/dl (3.5-5.0); Alkaline Phosphatase 72 U/L (38-126); Blood Urea Nitrogen 14 mg/dl (7-17); Calcium 10.1 mg/dl (8.4-10.2); Carbon Dioxide 25 mmol/L (22-30); Chloride 107 mmol/L (98-107); Glucose 109 mg/dl (70-99); HDL Cholesterol 51 mg/dl; LDL Cholesterol, Calculated 90 mg/dl; Potassium 4.6 mmol/L (3.5-5.1); Sodium 142 mmol/L (135-145); Total Protein 8.1 g/dl (6.3-8.2); Very Low Density Lipoprotein 26 mg/dl (0-30); eGFR > 60.00
[2025-06-24 12:19] LABS: TSH 0.75 uIU/ml (0.47-4.68)
[2025-06-24 12:22] LABS: Ferritin 43.6 ng/ml (11.1-264.0)
[2025-06-24 12:34] LABS: Glycohemoglobin (HgbA1c) 6.0 % (4.0-5.6)
== END ==
LOC: REG 10:37
PROVIDERS: ATTENDING PHYSICIAN Physician Assistant Medical
DX: R79.89 Other specified abnormal findings of blood chemistry (principal); R73.01 Impaired fasting glucose; E78.1 Pure hyperglyceridemia; I10 Essential (primary) hypertension; C50.911 Malignant neoplasm of unspecified site of right female breast; E78.2 Mixed hyperlipidemia
CPT/HCPCS: 36415; 80053; 80061; 82728; 83036; 84443; 85025

== ENCOUNTER → 2025-09-01 14:37 | Outpatient (REF) | payer BC, SELFPAY | LOC: MRI 14:37 | PROVIDERS: ATTENDING PHYSICIAN Internal Medicine Gastroenterology; FAMILY PHYSICIAN Physician Assistant Medical | DX: K76.0 Fatty (change of) liver, not elsewhere classified (principal) | CPT/HCPCS: 74181; 76391 ==

== ENCOUNTER → 2025-09-15 11:06 | Outpatient (REF) | payer BC, SELFPAY ==
[2025-09-15 12:38] LABS: Iron 136 ug/dl (37-170)
[2025-09-15 12:47] LABS: Total Iron Binding Capacity 413 ug/dl (265-497)
[2025-09-15 13:14] LABS: Hepatitis B Surface Antigen Negative (Negative)
[2025-09-15 13:31] LABS: Hepatitis A Antibody, Total Negative (Negative); Hepatitis C Antibody Negative (Negative)
[2025-09-17 01:56] LABS: Mitochondrial M2 Ab, IgG 2.7 Units (0.0-24.9)
[2025-09-18 02:35] LABS: Soluble Liver Antigen Ab 1.9 U (0.0-24.9)
== END ==
LOC: REG 11:06
PROVIDERS: ATTENDING PHYSICIAN Nurse Practitioner; FAMILY PHYSICIAN Physician Assistant Medical
DX: R79.89 Other specified abnormal findings of blood chemistry (principal)
CPT/HCPCS: 36415; 82103; 82390; 82784; 83516; 83540; 83550; 86015; 86381; 86706; 86708; 86803; 87340

== ENCOUNTER → 2025-11-05 14:15 | Outpatient (REF) | payer BC, SELFPAY ==
[2025-11-05 15:37] LABS: ALT (SGPT) 58 U/L (0-35); AST (SGOT) 42 U/L (14-36); Albumin 5.1 g/dl (3.5-5.0); Alkaline Phosphatase 48 U/L (38-126); Blood Urea Nitrogen 15 mg/dl (7-17); Calcium 10.1 mg/dl (8.4-10.2); Carbon Dioxide 25 mmol/L (22-30); Chloride 103 mmol/L (98-107); Glucose 86 mg/dl (70-99); Potassium 4.2 mmol/L (3.5-5.1); Sodium 140 mmol/L (135-145); Total Protein 8.1 g/dl (6.3-8.2); eGFR > 60.00
== END ==
LOC: REG 14:15
PROVIDERS: ATTENDING PHYSICIAN Internal Medicine Hematology & Oncology; FAMILY PHYSICIAN Physician Assistant Medical
DX: C50.419 Malignant neoplasm of upper-outer quadrant of unspecified female breast (principal); M81.8 Other osteoporosis without current pathological fracture
CPT/HCPCS: 36415; 80053

== ENCOUNTER 2025-11-25 07:44 | Outpatient (RCR) | payer BC, SELFPAY ==
[2025-11-25 07:53] VITALS: BP 137/78
[2025-11-25] MEDS: PROLIA 60 MG SC (08:02)
== END 2025-11-25 23:59 | disposition home or self-care (01) ==
LOC: OID 07:44
PROVIDERS: ATTENDING PHYSICIAN Internal Medicine Hematology & Oncology; FAMILY PHYSICIAN Physician Assistant Medical
DX: M81.8 Other osteoporosis without current pathological fracture (principal); C50.419 Malignant neoplasm of upper-outer quadrant of unspecified female breast
CPT/HCPCS: 96372; J0897